=== PATIENT | male | born 1945 | race Caucasian/White ===

== ENCOUNTER 2021-09-14 13:40 | Emergency (ER) | payer MEDICARE ==
[~2021-09-14] VITALS: Ht 175.3 cm; Wt 61.2 kg
[~2021-09-14 13:40] MED LIST: ABILIFY 5 MG TAB5 M1; ALLERGY EYE5 ML; ANDROGEL75 GM; ARTIFICIAL TEA1 EACH; ASPIRIN81 M2 PO; ATIVAN0.5 MG; CELEXA40 MG; FERROUS GLUCON325 M4; FISH OIL 500 M1 EAC1; FLUNISOLIDE25 M1; GLUCOPHAGE500 MG; OMEPRAZOLE 20 M20 M1; PRAVACHOL40 MG; PRAZOSIN HCL2 MG; VANDAZOLE GEL 070 GM; ZYRTEC10 M2
[2021-09-14 14:52] LABS: HEMATOCRIT 31.7 % (42.0-52.0); HEMOGLOBIN 10.7 gm/dL (14.0-18.0); MCH 33.4 pg (26.0-34.0); MCHC 33.7 g/dL (28.0-37.0); MPV 9.9 fl. (7.2-11.1); NUCLEATED RBCS 0 /100WBC; PLATELET COUNT* 105 thou/uL (150-400); RDW-CV 16.3 % (10.5-14.5)
[2021-09-14 15:00] LABS: CALCIUM 7.7 mg/dL (8.5-10.1); CREATININE 0.6 mg/dL (0.6-1.3); POTASSIUM 3.3 mmol/L (3.5-5.1)
[2021-09-14 15:04] LABS: ALBUMIN 2.3 g/dL (3.4-5.0); TOTAL BILIRUBIN 0.6 mg/dL (<0.1-1.0); TOTAL PROTEIN 4.8 g/dL (6.4-8.2)
[2021-09-14 15:09] LABS: ABSOLUTE LYMPHOCYTES 0.3 thou/uL (0.8-5.3); ABSOLUTE MONOCYTES 0.1 thou/uL (0.0-1.2); ABSOLUTE NEUTROPHILS 4.7 thou/uL (1.6-8.1); ATYPICAL LYMPHS 1 %
[2021-09-14 15:10] LABS: ANISOCYTOSIS 2+; HYPOCHROMASIA 1+; OVALOCYTES 2+; PLATELET ESTIMATE DECREASED; POIKILOCYTOSIS 2+
[2021-09-14 15:55] LABS: APTT 31.9 Seconds (25.0-31.3); INR 1.1; PROTIME 11.5 Seconds (9.20-11.50)
[2021-09-14 16:30] VITALS: BP 111/59
--- NOTE | 2021-09-15 14:33 | EKG ---
[place] [address] ELECTROCARDIOGRAM REPORT Name: HERMILAFARHAD Martinez Room: 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 : 1945 Requested By: Daisy Yanez Order Number: [id number] MD: Jj Henry Measurements Intervals [place] Rate: 89 P: 74 IN: 165 QRS: -77 QRSD: 106 T: 82 QT: 406 QTc: 495 Interpretive Statements Sinus rhythm Left axis deviation Low voltage, extremity and precordial leads Compared to ECG 09/30/2012 05:35:27 Left-axis deviation now present Low QRS voltage now present Atrial premature complex(es) no longer present Electronically Signed On 09-15-2021 14:33:34 SCRIPT READER by Jj Henry [email or web address] <ELECTRONICALLY SIGNED> By: Jj Henry MD, FACC 09/15/21 1433 1343 1343 Jj Henry MD, FACC /EPI
== END 2021-09-14 16:30 | disposition short-term general hospital (02) ==
LOC: M.ERS 13:40
PROVIDERS: Nurse Practitioner Family
DX: S06.5X9A Traumatic subdural hemorrhage with loss of consciousness of unspecified duration, initial encounter (principal); S00.83XA Contusion of other part of head, initial encounter; T14.8XXA Other injury of unspecified body region, initial encounter; F41.9 Anxiety disorder, unspecified; K21.9 Gastro-esophageal reflux disease without esophagitis; Z90.89 Acquired absence of other organs; Z79.82 Long term (current) use of aspirin; Z79.899 Other long term (current) drug therapy; W19.XXXA Unspecified fall, initial encounter; Y93.89 Activity, other specified; Y92.89 Other specified places as the place of occurrence of the external cause; Y99.8 Other external cause status